=== PATIENT | female | born 1955 | race Hispanic/Latino ===

== ENCOUNTER → 2022-12-09 | Outpatient (CLI) | payer OTHER | END | disposition home or self-care (01) | LOC: RAH 10:30 | PROVIDERS: ATTEND Physical Medicine & Rehabilitation | DX: M47.812 Spondylosis without myelopathy or radiculopathy, cervical region (principal); M54.2 Cervicalgia | CPT/HCPCS: 72050 ==

== ENCOUNTER → 2024-05-13 | Outpatient (CLI) | payer OTHER ==
--- NOTE | 2024-05-13 17:24 | HMCIMG ---
LUMBAR W FLEXION/EXTENSION REASON: CVertebrogenic lower back pain. COMPARISON: None TECHNIQUE: 5 images of lumbar spine were obtained including flexion and extension views. FINDINGS: There is mild dextroscoliosis. Disc space narrowings are seen at L1-2, L2-3, L4-5 and L5-S1 levels. Fecal material is seen in the colon. No definite seen. IMPRESSION: Findings as described above.
== END | disposition home or self-care (01) ==
LOC: RAH 09:23
PROVIDERS: ATTEND Physical Medicine & Rehabilitation
DX: M41.86 Other forms of scoliosis, lumbar region (principal); M48.07 Spinal stenosis, lumbosacral region; M54.51 Vertebrogenic low back pain
CPT/HCPCS: 72114